=== PATIENT | male | born 1980 | race Caucasian/White ===

== ENCOUNTER 2016-11-07 16:14 | Emergency (ER) | payer MEDICAID ==
[2016-11-07] MEDS ORDERED: OPTIRAY 350 100 ML VIAL HMH IV ONE (16:15)
[2016-11-07] MEDS ORDERED: ONDANSETRON 4 MG VIAL ONE (17:34)
== END 2016-11-07 19:42 | disposition home or self-care (01) ==
LOC: ER 16:14
DX: K62.5 Hemorrhage of anus and rectum (principal); K62.89 Other specified diseases of anus and rectum
CPT/HCPCS: 36415; 74177; 80053; 82274; 83690; 85025